=== PATIENT | male | born 1980 | race Caucasian/White ===

== ENCOUNTER 2022-10-10 07:57 | Emergency (ER) | payer OTHER, SELFPAY ==
[2022-10-10 08:03] VITALS: BP 150/86; RESP 22; TEMP 36.4; O2SAT 96; BMI 36.6
--- NOTE | 2022-10-10 08:33 | ECG_ITS ---
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
--- NOTE | 2022-10-10 08:33 | XR_ITS ---
The [address] [address] Patient Name: HUNTER TRAMMELL MRN: [id number] date: 1980 Sex: M Assigned Patient Location: ER Current Patient Location: ER Accession/Order Number: [id number] Exam Date: 10/10/2022 08:35 Report Date: 10/10/2022 08:51 At the request of: BROOKLYN HEAD Procedure: XR chest 1V EXAM: XR chest 1V HISTORY: palp COMPARISON: None. TECHNIQUE: Chest X-ray, 1 view. FINDINGS: Support devices: None. Lungs/pleura: Mildly diminished lung expansion. Minimal hazy left basilar opacities. No peggy edema. No effusion or pneumothorax. No consolidation. Heart and mediastinum: Normal contours. Bones: No acute abnormality identified. XR/XR chest 1V IMPRESSION: Minimal hazy left basilar opacities are favored represent atelectasis over infiltrate. Electronically authenticated by: OPAL ORELLANA Date: 10/10/2022 08:51
[2022-10-10 08:34] VITALS: O2SAT 96
--- NOTE | 2022-10-10 08:36 | ED.GENADUL1 ---
HPI - General Adult General Chief complaint: Arrhythmia/Palpitations Stated complaint: RAPID HEART RATE Time Seen by Provider: 10/10/22 08:33 Source: patient Mode of arrival: walk-in Limitations: no limitations History of Present Illness HPI narrative: patient is a 41-year-old male who is presenting to the Emergency Room secondary to palpitations a started at work today, along with lightheaded and dizziness. Patient was wondering if he had a panic attack, he has no history of stress, anxiety, or panic attacks. 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 Patient's had no recent traveling. No medication changes, no new [id number] products, no new nothing to eat or drink. Patient had no headache or neck pain. No chest pain or shortness of breath. Patient felt his heart racing, then he started having bilateral hand shaking. He was not having a seizure. Patient had no shortness of breath, no dull pain, nausea or vomiting. Patient came in for evaluation because this has not happened before. No illicit drug use. No other acute complaints. All systems are negative except as noted/marked. All systems reviewed and otherwise negative. . Nurses note and vital signs reviewed and patient is not hypoxic. General: The patient appears well and in no apparent distress. Patient is resting comfortably on cart. Patient is not toxic, lethargic, or listless Skin: Warm, dry, no pallor noted. There is no rash noted. No petechiae, purpura. Head: Normocephalic, atraumatic Eye: Normal conjunctiva, no drainage, EOMI. PERRL Ears, Nose, Mouth, and Throat: oral mucosa is moist. Nares patent. Cardiovascular: Regular Rate and Rhythm, no murmur, gallop, rub Respiratory: Patient is in no distress, no accessory muscle use, lungs are clear to auscultation, no wheezing, rales or rhonchi Back: non-tender, no CVA tenderness bilaterally to percussion. No CT LS midline pain GI: soft, no tenderness Musculoskeletal: Patient has full range of motion of all of the extremities, no motor, sensory, or focal neurological deficits Neurological: A&O x3, normal speech Psychiatric: Cooperative Related Data Allergies Allergy/AdvReac Type Severity Reaction Status Date / Time No Known Drug Allergies Allergy Verified 10/10/22 08:12 PFSH PFSH Social History Smoking status: Never smoker Exam Constitutional Vital Signs, click to edit/add: Last Vital Signs Temp 97.6 F 10/10/22 08:03 Pulse 63 10/10/22 09:23 Resp 16 10/10/22 09:23 BP 110/82 H 10/10/22 09:22 Pulse Ox 96 10/10/22 09:23 O2 Del Method Room Air 10/10/22 09:22 Course Vital Signs Vital signs: Vital Signs Temperature 97.6 F 10/10/22 08:03 Respiratory Rate 22 10/10/22 08:03 Blood Pressure 150/86 H 10/10/22 08:03 Pulse Oximetry 96 10/10/22 08:03 Oxygen Delivery Method Room Air 10/10/22 08:03 Temperature 97.6 F 10/10/22 08:03 Pulse Rate 63 10/10/22 09:23 Respiratory Rate 16 10/10/22 09:23 Blood Pressure 110/82 H 10/10/22 09:22 Pulse Oximetry 96 10/10/22 09:23 Oxygen Delivery Method Room Air 10/10/22 09:22 Medical Decision Making MDM Narrative Medical decision making narrative: patient's EKG, chest x-ray, lower show no acute changes. Patient will be discharged. Patient will follow-up with PCP. Patient says he does feel better after 1 L of IV fluids. Education done at bedside on possible etiologies, but nothing certain can be given to him. Patient had thyroid discussion as well, he will follow-up with his PCP for further outpatient testing if needed. No questions at discharge. Lab Data Lab results reviewed: Yes I reviewed the patient's lab results Labs: Lab Results 10/10/22 Range/Units 08:17 WBC 5.9 (4.0-11.0) 10^3/uL RBC 4.90 (4.70-6.10) 10^6/uL Hgb 14.5 (14.0-18.0) g/dL Hct 42.6 (42.0-54.0) % MCV 86.9 (80.0-94.0) fL MCH 29.6 (25.9-34.0) pg MCHC 34.0 (29.9-35.2) g/dL RDW 12.4 (11.0-15.0) % Plt Count 253 (150-450) 10^3/uL MPV 8.9 L (9.5-13.5) fL Neut % (Auto) 61.6 (43.0-75.0) % Lymph % (Auto) 21.2 (20.5-60.0) % [place] % (Auto) 12.6 H (1.7-12.0) % Eos % (Auto) 3.1 (0.9-7.0) % Baso % (Auto) 1.0 (0.2-2.0) % Neut # (Auto) 3.6 (1.4-6.5) 10^3/uL Lymph # (Auto) 1.2 (1.2-3.8) 10^3/uL [place] # (Auto) 0.7 (0.3-0.8) 10^3/uL Eos # (Auto) 0.2 (0.0-0.7) 10^3/uL Baso # (Auto) 0.1 (0.0-0.1) 10^3/uL Abs Immat Gran (auto) 0.03 (0.00-0.03) 10^3/uL Imm/Tot Granulo (auto) 0.5 (0.0-0.5) % Sodium 140 (136-145) mmol/L Potassium 4.9 (3.5-5.1) mmol/L Chloride 104 (98-107) mmol/L Carbon Dioxide 29.5 (21.0-32.0) mmol/L Anion Gap 11.4 BUN 14.0 (7.0-18.0) mg/dL Creatinine 0.92 (0.70-1.30) mg/dL Est GFR ( Amer) >60 (>=60) Est GFR (Non-Af Amer) >60 (>=60) BUN/Creatinine Ratio 15.2 Glucose 101 (74-106) mg/dL Calcium 8.6 (8.5-10.1) mg/dL Total Creatine Kinase 108 (39-308) U/L Troponin I High Sens 4.4 (4.0-76.1) pg/mL ECG Data Attestation: I personally reviewed and interpreted this ECG as follows: Interpretation: EKG interpretation. Normal sinus rhythm at 75 beats a minute. Normal axis deviation. No acute ST elevation, no acute ectopy. QTC of 411 Discharge Plan Discharge Chief Complaint: Arrhythmia/Palpitations Clinical Impression: Palpitations, Dizziness Patient Disposition: Home, Self-Care Condition: Fair Instructions: Heart Palpitations (ED), Lightheadedness (ED), Dizziness (ED) Additional Instructions: if palpitations return or continue, follow-up with PCP for additional outpatient testing Increase fluids Stand Alone Forms: Portal Instructions Referrals: Physician,Non-Staff, MD [Primary Care Provider] - 1 week
[2022-10-10] MEDS: 0.9 % SODIUM CHLORIDE 1,000 ML 1000 ML IV (08:45)
[2022-10-10 08:51] VITALS: BP 120/80
[2022-10-10 08:53] LABS: Basophils Absolute Auto 0.1 10^3/uL (0.0-0.1); Eosinophils Absolute Auto 0.2 10^3/uL (0.0-0.7); Eosinophils Percent Auto 3.1 % (0.9-7.0); Hematocrit 42.6 % (42.0-54.0); Hemoglobin 14.5 g/dL (14.0-18.0); Immature Granulocytes Abs Auto 0.03 10^3/uL (0.00-0.03); Immature Granulocytes Pct Auto 0.5 % (0.0-0.5); Lymphocytes Absolute Auto 1.2 10^3/uL (1.2-3.8); Lymphocytes Percent Auto 21.2 % (20.5-60.0); Mean Corpuscular Hemoglobin 29.6 pg (25.9-34.0); Mean Corpuscular Volume 86.9 fL (80.0-94.0); Mean Platelet Volume 8.9 fL (9.5-13.5); Monocytes Absolute Auto 0.7 10^3/uL (0.3-0.8); Monocytes Percent Auto 12.6 % (1.7-12.0); Neutrophils Absolute Auto 3.6 10^3/uL (1.4-6.5); Neutrophils Percent Auto 61.6 % (43.0-75.0); Platelet Count 253 10^3/uL (150-450); Red Cell Distribution Width 12.4 % (11.0-15.0); White Blood Count 5.9 10^3/uL (4.0-11.0)
[2022-10-10 09:07] LABS: Creatine Kinase 108 U/L (39-308)
[2022-10-10 09:12] LABS: Anion Gap 11.4; BUN Creatinine Ratio 15.2; Calcium 8.6 mg/dL (8.5-10.1); Carbon Dioxide 29.5 mmol/L (21.0-32.0); Chloride 104 mmol/L (98-107); Estimated GFR (African America >60 (>=60); Estimated GFR (Non-African Ame >60 (>=60); Glucose 101 mg/dL (74-106); Potassium 4.9 mmol/L (3.5-5.1); Sodium 140 mmol/L (136-145); Troponin I High Sensitivity 4.4 pg/mL (4.0-76.1)
[2022-10-10 09:22] VITALS: BP 110/82; O2SAT 95
[2022-10-10 09:23] VITALS: PULSE 63; RESP 16; O2SAT 96
[2022-10-10 10:19] VITALS: BP 130/84; PULSE 62; RESP 18; O2SAT 97
== END 2022-10-10 10:22 | disposition home or self-care (01) ==
PROVIDERS: Emergency Provider Emergency Medicine
DX: R00.2 Palpitations (principal); R42 Dizziness and giddiness
CPT/HCPCS: 36415; 36416; 71045; 80048; 82550; 82948; 84484; 85025; 93005; 96360; 96361; 99285